=== PATIENT | male | born 1965 | race Caucasian/White ===

== ENCOUNTER 2020-02-08 11:45 | Emergency (ER) | payer SELFPAY ==
--- NOTE | 2020-02-08 12:23 | EDPHYS ---
Physician Documentation [facility] Name: Tico Bean Age: 54 yrs Sex: Male : 1965 Arrival Date: 02/08/2020 Time: 11:48 Bed 14 Private MD: ED Physician Efren Weber HPI: 02/07 12:42 This 54 yrs old Male presents to ER via Ambulatory with complaints of kb Toothache. 12:42 The patient presents with pain, redness, swelling. The problem is located in the upper kb left second bicuspid (#13). Onset: The symptoms/episode began/occurred 3 day(s) ago, and became worse today. Duration: The symptoms are continuous. Modifying factors: The symptoms are alleviated by nothing, the symptoms are aggravated by nothing. Associated signs and symptoms: Pertinent positives: pain, redness in area, swelling. Severity of symptoms: At their worst the symptoms were moderate, in the emergency department the symptoms are unchanged. The patient has not experienced similar symptoms in the past. The patient has not recently seen a physician. Historical: - Allergies: 12:06 NSAIDS; ll1 12:06 Ultram; ll1 12:06 Clindamycin; ll1 - PSHx: 12:06 Hernia repair; Gastric Bypass; ll1 - Immunization history:: Flu vaccine is up to date. - Social history:: Smoking status: Patient denies any tobacco usage or history of. ROS: 12:39 Constitutional: Negative for fever, chills, and weight loss, Cardiovascular: Negative kb for chest pain, palpitations, and edema, Respiratory: Negative for shortness of breath, cough, wheezing, and pleuritic chest pain, Abdomen/GI: Negative for abdominal pain, nausea, vomiting, diarrhea, and constipation, MS/Extremity: Negative for injury and deformity, Skin: Negative for injury, rash, and discoloration, Neuro: Negative for headache, weakness, numbness, tingling, and seizure. 12:39 ENT: Positive for dental pain, Teeth pain Exam: 12:39 Constitutional: This is a well developed, well nourished patient who is awake, alert, kb and in no acute distress. Head/Face: Normocephalic, atraumatic. Chest/axilla: Normal chest wall appearance and motion. Nontender with no deformity. No lesions are appreciated. Cardiovascular: Regular rate and rhythm with a normal S1 and S2. No gallops, murmurs, or rubs. Normal PMI, no JVD. No pulse deficits. Respiratory: Lungs have equal breath sounds bilaterally, clear to auscultation and percussion. No rales, rhonchi or wheezes noted. No increased work of breathing, no retractions or nasal flaring. Abdomen/GI: Soft, non-tender, with normal bowel sounds. No distension or tympany. No guarding or rebound. No evidence of tenderness throughout. Skin: Warm, dry with normal turgor. Normal color with no rashes, no lesions, and no evidence of cellulitis. MS/ Extremity: Pulses equal, no cyanosis. Neurovascular intact. Full, normal range of motion. Neuro: Awake and alert, GCS 15, oriented to person, place, time, and situation. Cranial nerves II-XII grossly intact. Motor strength 5/5 in all extremities. Sensory grossly intact. Cerebellar exam normal. Normal gait. 12:39 ENT: Dental exam: dental caries, that is moderate, specifically in the upper left second bicuspid (#13), gum swelling, that is moderate, specifically in the upper left second bicuspid (#13), pain, that is severe, specifically in the upper left second bicuspid (#13). Vital Signs: 12:04 BP 144 / 100; Pulse 65; Resp 19; Temp 97.1; Pulse Ox 97% ; Weight 99.79 kg; Height 5 ll1 ft. 7 in. (170.18 cm); Pain 10/10; 12:04 Body Mass Index 34.46 (99.79 kg, 170.18 cm) ll1 MDM: 12:10 Patient medically screened. kb 12:42 Data reviewed: vital signs, nurses notes. Data interpreted: Pulse oximetry: on room air kb is 97 %. Interpretation: normal. Counseling: I had a detailed discussion with the patient and/or guardian regarding: the historical points, exam findings, and any diagnostic results supporting the discharge/admit diagnosis, the need for outpatient follow up, a dentist, to return to the emergency department if symptoms worsen or persist or if there are any questions or concerns that arise at home. ED course: Pt has dentist appt on Thursday. 12:54 ED course: Spoke with pharmacy to clarify Tylenol #3 prescription. Changed to take 2 kb tabs every 6 hours PRN, quantity 16. Administered Medications: 12:28 Drug: [place] 10 mg-325 mg 1 tabs {Note: RASS 0.} Route: PO; tw2 12:33 Follow up: Response: No adverse reaction; RASS: Alert and Calm (0) tw2 12:28 Drug: Augmentin 875 mg Route: PO; tw2 12:32 Follow up: Response: No adverse reaction tw2 Disposition: 15:35 Co-signature as Attending Physician, Efren Weber MD. va2 Disposition: 02/08/20 12:22 Discharged to Home. Impression: Periapical abscess without sinus. - Condition is Stable. - Discharge Instructions: Dental Pain, [id number], Dental Abscess, [id number]. - Prescriptions for Augmentin 875- 125 mg Oral Tablet - take 1 tablet by ORAL route every 12 hours for 10 days; 20 tablet. Tylenol- Codeine #3 300-30 mg Oral Tablet - take 16 tablet by ORAL route every 6 hours As needed; 30 tablet. - Medication Reconciliation Form, Thank You Letter, Antibiotic Education, Prescription Opioid Use form. - Follow up: Emergency Department; When: As needed; Reason: Worsening of condition. Follow up: Private Physician; When: 2 - 3 days; Reason: Recheck today's complaints, Continuance of care, Re-evaluation by your physician. Signatures: Haley Rey, TANG-C ELEVATOR REPAIRER-Arlene Garcia RN RN tw2 Efren Weber MD MD ma2 Salbador Sepulveda RN RN ll1 Corrections: (The following items were deleted from the chart) 12:33 12:22 02/08/2020 12:22 Discharged to Home. Impression: Periapical abscess without tw2 sinus. Condition is Stable. Forms are Medication Reconciliation Form, Thank You Letter, Antibiotic Education, Prescription Opioid Use. Follow up: Emergency Department; When: As needed; Reason: Worsening of condition. Follow up: Private Physician; When: 2 - 3 days; Reason: Recheck today's complaints, Continuance of care, Re-evaluation by your physician. kb
--- NOTE | 2020-02-08 12:23 | ER ---
Nurse's Notes [facility] Name: Tico Bean Age: 54 yrs Sex: Male : 1965 Arrival Date: 02/08/2020 Time: 11:48 Bed 14 Private MD: Diagnosis: Periapical abscess without sinus Presentation: 02/07 12:04 Chief complaint: Patient states: Left upper jaw tooth pain since Thursday. No known ll1 fever. Coronavirus screen: Client indicates they have traveled out of the [place] in the last 14 days. At this time, the client does not indicate any symptoms associated with coronavirus-19. Ebola Screen: Patient denies travel to an Ebola-affected area in the 21 days before illness onset. Initial Sepsis Screen: Does the patient meet any 2 criteria? No. Patient's initial sepsis screen is negative. Does the patient have a suspected source of infection? Yes: Other: dental pain. Risk Assessment: Do you want to hurt yourself or someone else? Patient reports no desire to harm self or others. Onset of symptoms was February 04, 2020. 12:04 Method Of Arrival: Ambulatory ll1 12:04 Acuity: FREDY 4 ll1 Historical: - Allergies: 12:06 NSAIDS; ll1 12:06 Ultram; ll1 12:06 Clindamycin; ll1 - PSHx: 12:06 Hernia repair; Gastric Bypass; ll1 - Immunization history:: Flu vaccine is up to date. - Social history:: Smoking status: Patient denies any tobacco usage or history of. Screenin:07 Abuse screen: Denies threats or abuse. Nutritional screening: No deficits noted. tw2 Tuberculosis screening: No symptoms or risk factors identified. Fall Risk None identified. Assessment: 12:06 General: Appears in no apparent distress. uncomfortable, well groomed, Behavior is tw2 calm, cooperative, appropriate for age. Pain: Complains of pain in mouth. Neuro: Level of Consciousness is awake, alert, obeys commands, Oriented to person, place, time, situation. Cardiovascular: Patient's skin is warm and dry. Respiratory: Airway is patent Respiratory effort is even, unlabored, Respiratory pattern is regular, symmetrical. GI: No signs and/or symptoms were reported involving the gastrointestinal system. : No signs and/or symptoms were reported regarding the genitourinary system. EENT: Reports pain in gums, left buccal mucosa and left cheek. 12:31 Derm: No signs and/or symptoms reported regarding the dermatologic system. tw2 Musculoskeletal: Range of motion: intact in all extremities. 12:32 Reassessment: Patient appears in no apparent distress at this time. No changes from tw2 previously documented assessment. Patient and/or family updated on plan of care and expected duration. Pain level reassessed. Patient is alert, oriented x 3, equal unlabored respirations, skin warm/dry/pink. Vital Signs: 12:04 BP 144 / 100; Pulse 65; Resp 19; Temp 97.1; Pulse Ox 97% ; Weight 99.79 kg; Height 5 ll1 ft. 7 in. (170.18 cm); Pain 10/10; 12:04 Body Mass Index 34.46 (99.79 kg, 170.18 cm) ll1 ED Course: 11:48 Patient arrived in ED. mr 12:05 Triage completed. ll1 12:06 Arm band placed on Patient placed. ll1 12:07 Arlene Welch RN is Primary Nurse. tw2 12:07 Bed in low position. Call light in reach. Pulse ox on. NIBP on. tw2 12:10 Haley Rey F[facility]C [facility]. kb 12:10 Efren Weber MD is Attending Physician. kb 12:33 No provider procedures requiring assistance completed. Patient did not have IV access tw2 during this emergency room visit. Administered Medications: 12:28 Drug: [place] 10 mg-325 mg 1 tabs {Note: RASS 0.} Route: PO; tw2 12:33 Follow up: Response: No adverse reaction; RASS: Alert and Calm (0) tw2 12:28 Drug: Augmentin 875 mg Route: PO; tw2 12:32 Follow up: Response: No adverse reaction tw2 Outcome: 12:22 Discharge ordered by . kb 12:33 Discharged to home ambulatory. tw2 12:33 Condition: stable 12:33 Discharge instructions given to patient, Instructed on discharge instructions, follow up and referral plans. no drinking with medication, no driving heavy equipment, medication usage, Demonstrated understanding of instructions, follow-up care, medications, Prescriptions given X 2. 12:33 Patient left the ED. tw2 Signatures: Haley Rey FNP-C FNP-Ckb Margaux Nugent mr Arlene Welch, RN RN tw2 Salbador Sepulveda RN RN ll1 Corrections: (The following items were deleted from the chart) : 12:28 [place] 10 mg-325 mg 1 tabs PO 12:32 12:06 EENT: Reports pain
[2020-02-08 12:40] VITALS: BP 144/100; TEMP 97.1; O2SAT 97
[2020-02-08] MEDS ORDERED: AMOX/K CLAV 875 MG TAB ONE (12:41)
[2020-02-08] MEDS ORDERED: HYDROCODONE/APAP 10/325 TAB ONE (12:41)
== END 2020-02-08 12:33 | disposition home or self-care (01) ==
LOC: ER 11:45
DX: K04.7 Periapical abscess without sinus (principal); Z98.84 Bariatric surgery status; Z88.3 Allergy status to other anti-infective agents; Z88.6 Allergy status to analgesic agent; Z88.8 Allergy status to other drugs, medicaments and biological substances
CPT/HCPCS: 99283